=== PATIENT | female | born 2000 | race Caucasian/White ===

== ENCOUNTER 2023-02-21 10:56 | Emergency (ER) | payer OTHER ==
--- NOTE | 2023-02-21 11:30 | ERPHSYRPT ---
- History of Present Illness Source: patient, other (Mother) Exam Limitations: no limitations Patient Subjective Stated Complaint: Patient c/o vaginal bleeding that started last night. No clots. Bleeding was red yesterday and pink this am. Denies pain at this time but states she had some cramping and back pain yesterday prior to the start of the bleeding. States she took a home test yesterday that was positive. She just stopped taking her oral control yesterday. Has an appointment with Dr. Velazco on Friday. Triage Nursing Assessment: Patient ambulated back to ER without difficulties. No SOB. She is alert and oriented. GUILLORY WNL. Skin tone normal. Urine specimen obtained. Physician History: 22 yo wf w +home test yesterday and vaginal bleeding starting at 3AM. No tissue reported, and bleeding which has slowed was same as a period. She had some cramping yesterday which has resolved. Timing/Duration: today (3AM) Activites at Onset: rest Quality: cramping (Resolved) Onset Location: suprapubic Pain Radiation: none Severity of Pain-Max: mild Severity of Pain-Current: none Prior abdominal problems: none Sexual intercourse history: single partner Modifying Factors: Improves With: nothing Associated Symptoms: denies symptoms Allergies/Adverse Reactions: No Known Drug Allergies Allergy (Verified 02/21/23 11:06) Home Medications: No Reportable Medications [No Reported Medications] 02/21/23 [History] Hx Tetanus, Diphtheria Vaccination/Date Given: Yes Hx Influenza Vaccination/Date Given: Yes Hx Pneumococcal Vaccination/Date Given: No Travel Risk - International Travel Have you traveled outside of the country in past 3 weeks: No - Coronavirus Screening Are you exhibiting any of the following symptoms?: No Close contact with a COVID-19 positive Pt in past 14-21 Days: No - Vaccine Status Have you recieved a Covid-19 vaccination: Yes 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 - Review of Systems Constitutional: No Symptoms Eyes: No Symptoms Ears, Nose, & Throat: No Symptoms Respiratory: No Symptoms Cardiac: No Symptoms Abdominal/Gastrointestinal: No Symptoms, Abdominal Pain Genitourinary Symptoms: No Symptoms, Vaginal Bleeding Musculoskeletal: No Symptoms Skin: No Symptoms Neurological: No Symptoms Psychological: No Symptoms Endocrine: No Symptoms Hematologic/Lymphatic: No Symptoms Immunological/Allergic: No Symptoms - Past Medical History Pertinent Past Medical History: No - Past Surgical History Past Surgical History: Yes - Social History Smoking Status: Never smoker Exposure to second hand smoke: No Drug Use: none - Female History Hx Last Menstrual Period: 02/02/23 Hx Now: Yes (home test) Gestational Age: unknown - Nursing Vital Signs Nursing Vital Signs: Initial Vital Signs Temperature 97.7 F 02/21/23 11:07 Pulse Rate 64 02/21/23 11:07 Respiratory Rate 17 02/21/23 11:07 Blood Pressure 134/69 02/21/23 11:07 O2 Sat by Pulse Oximetry 99 02/21/23 11:07 Pain Scale Pain Intensity 0 Mildly hypertensive - Physical Exam General Appearance: no apparent distress Eye Exam: PERRL/EOMI, eyes nml inspection Ears, Nose, Throat Exam: normal ENT inspection, TMs normal, pharynx normal, moist mucous membranes Neck Exam: normal inspection, non-tender, supple, full range of motion, No meningismus, No mass, No Brudzinski, No Kernig's Respiratory Exam: normal breath sounds, lungs clear, airway intact, No respiratory distress Cardiovascular Exam: regular rate/rhythm, normal heart sounds, normal peripheral pulses, capillary refill <2 sec, No murmur Gastrointestinal/Abdomen Exam: soft, normal bowel sounds, No tenderness, No distention Back Exam: normal inspection, normal range of motion, No CVA tenderness, No vertebral tenderness Extremity Exam: normal inspection, normal range of motion Neurologic Exam: alert, oriented x 3, cooperative, 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, normal mood/affect, nml cerebellar function, nml station & gait, sensation nml, No motor deficits, No sensory deficit Skin Exam: normal color, warm, dry, No rash Lymphatic Exam: No adenopathy SpO2 Interpretation: normal SpO2: 99 O2 Delivery: Room Air - Course Nursing assessment & vital signs reviewed: Yes - Radiology Ultrasound Exam OB Ultrasound: discussed w/radiologist (Thickened endometirl stripe/Small L ovarian mass-hemorrhagic cyst vs tubo-ovarian abscess vs endometrioma) Ordered Tests: Active Orders 24 hr Category Date Time Status OB <14 WKS 1ST GESTATION [US] Stat Exams 02/21/23 12:00 Completed CBC W DIFF Stat Lab 02/21/23 11:35 Completed HCG QUALITATIVE, SERUM Stat Lab 02/21/23 11:35 Completed HCG, Quantitative (Inhouse) Stat Lab 02/21/23 12:01 Completed Lab/Rad Data: Laboratory Result Diagrams 02/21/23 11:35 Laboratory Results 02/21/23 02/21/23 02/21/23 Range/Units 12:12 12:01 11:35 WBC (4.0-10.5) x10^3/uL RBC (4.1-5.4) x10^6/uL Hgb (12.0-16.0) g/dL Hct (35-47) % MCV (78-100) fL MCH (26-32) pg MCHC (32-36) g/dL RDW (11.5-14.0) % Plt Count (150-450) x10^3/uL MPV (7.5-11.0) fL Gran % (36.0-66.0) % Immature Gran % (Auto) (0.00-0.4) % Nucleat RBC Rel Count (0.00-0.1) % Eos # (Auto) (0-0.5) x10^3/uL Immature Gran # (Auto) (0.00-0.03) x10^3u/L Absolute Lymphs (auto) (1.0-4.6) x10^3/uL Absolute Monos (auto) (0.0-1.3) x10^3/uL Absolute Nucleated RBC (0.00-0.01) x10^3u/L Lymphocytes % (24.0-44.0) % Monocytes % (0.0-12.0) % Eosinophils % (0.00-5.0) % Basophils % (0.0-0.4) % Absolute Granulocytes (1.4-6.9) x10^3/uL Basophils # (0-0.4) x10^3/uL Serum HCG, Qual POSITIVE (NEGATIVE) Beta HCG, Quant 1273.0 mIU/ml Rh Factor POSITIVE 02/21/23 Range/Units 11:35 WBC 6.4 (4.0-10.5) x10^3/uL RBC 3.76 L (4.1-5.4) x10^6/uL Hgb 10.8 L (12.0-16.0) g/dL Hct 34.6 L (35-47) % MCV 92.0 (78-100) fL MCH 28.7 (26-32) pg MCHC 31.2 L (32-36) g/dL RDW 14.6 H (11.5-14.0) % Plt Count 282 (150-450) x10^3/uL MPV 8.8 (7.5-11.0) fL Gran % 57.3 (36.0-66.0) % Immature Gran % (Auto) 0.3 (0.00-0.4) % Nucleat RBC Rel Count 0.0 (0.00-0.1) % Eos # (Auto) 0.10 (0-0.5) x10^3/uL Immature Gran # (Auto) 0.02 (0.00-0.03) x10^3u/L Absolute Lymphs (auto) 2.21 (1.0-4.6) x10^3/uL Absolute Monos (auto) 0.35 (0.0-1.3) x10^3/uL Absolute Nucleated RBC 0.00 (0.00-0.01) x10^3u/L Lymphocytes % 34.8 (24.0-44.0) % Monocytes % 5.5 (0.0-12.0) % Eosinophils % 1.6 (0.00-5.0) % Basophils % 0.5 (0.0-0.4) % Absolute Granulocytes 3.64 (1.4-6.9) x10^3/uL Basophils # 0.03 (0-0.4) x10^3/uL Serum HCG, Qual (NEGATIVE) Beta HCG, Quant mIU/ml Rh Factor - Progress Progress: improved Progress Note: 02/21/23 14:44 Nursing note and vital signs reviewed No food or housing insecurities noted All labs and US report reviewed and shared w pt Pt wo pain in ER Appointment obtained w Dr. Velazco on 02/24/23 at 15:00 US wo IUP and small mass on L ovary most likely complex hemorrhagic cyst vs tubo-ovarian abscess vs endometrioma/Pt to f/u w Dr. Velazco on 02/24/23 at 15:00. Doubt ectopic at this time but will need HCG followed and repeat US. Spoke w Dr. Velazco who agreed w office f/u. Discussed with : [place] Counseled pt/family regarding: lab results, diagnosis, need for follow-up, rad results Medical Desision Making - Independent Historian Additional History obtained from: Mother - Discussion of managment Care discussed with:: specialist Reviewed:: Test results, Need for additional workup Agreed on:: Treatment plan, need for follow-up Will see patient: In office - Diagnostic Testing Diagnostic test were ordered, analyzed, and reviewed by me: Yes Radiological Interpretation: Reviewed by me, Discussed w/ radiologist - Risk of complications Low Risk: Low risk of morbidity from additional dx testing or treatment - Departure Departure Disposition: Home Clinical Impression: First trimester bleeding Condition: Stable Critical Care Time: No Referrals: FLORENTINO VEGA [Primary Care Provider] - Follow up/PCP as directed Instructions: Threatened Miscarriage (DC) Additional Instructions: Follow up with Dr. Velazco on Friday Return to ER for increasing pain or bleeding
[2023-02-21 11:38] LABS: Absolute Neutrophil Ct (ANC) 3.64 x10^3/uL (1.4-6.9); BASOPHIL % 0.5 % (0.0-0.4); Basophil (Absolute #) 0.03 x10^3/uL (0-0.4); Eosinophil % 1.6 % (0.00-5.0); Hematocrit 34.6 % (35-47); Hemoglobin 10.8 g/dL (12.0-16.0); IMMATURE GRAN # 0.02 x10^3u/L (0.00-0.03); IMMATURE GRAN % 0.3 % (0.00-0.4); Lymphocyte (Absolute #) 2.21 x10^3/uL (1.0-4.6); Lymphocytes % 34.8 % (24.0-44.0); Mean Corpuscular Hemoglobin 28.7 pg (26-32); Mean Corpuscular Hgb Concent. 31.2 g/dL (32-36); Mean Platelet Volume 8.8 fL (7.5-11.0); Monocyte (Absolute #) 0.35 x10^3/uL (0.0-1.3); Monocytes % 5.5 % (0.0-12.0); Neutrophil % 57.3 % (36.0-66.0); Platelet Count 282 x10^3/uL (150-450); Red Blood Count 3.76 x10^6/uL (4.1-5.4); Red Cell Distribution Width 14.6 % (11.5-14.0); White Blood Count 6.4 x10^3/uL (4.0-10.5)
[2023-02-21 11:53] LABS: HCG SERUM TEST POSITIVE (NEGATIVE)
--- NOTE | 2023-02-21 13:25 | XRAY ---
Indication: Bleeding. Positive test. Two-dimensional transvaginal early OB ultrasound performed. Comparison: None Uterus retroflexed measuring 5.9 x 2.9 x 5.1 cm. No focal solid/cystic uterine mass. Thickened somewhat endometrial stripe up to 2.2 cm with subcentimeter fluid collection. No obvious intrauterine gestational sac, pole, or yolk sac. Right ovary measures 2.4 x 1.8 x 2.6 cm and the left measures 2.6 x 1.8 x 2.3 cm with normal perfusion and follicular cysts. Left ovary demonstrates a 2.9 x 1.5 x 1.7 cm echogenic mass with petechial peripheral color flow, possible complex hemorrhagic cyst versus tubo-ovarian abscess versus endometrioma. Although no pole/heart tones seen with this adnexal mass, cannot completely exclude ectopic. Small free fluid present. Impression: 1. Retroflexed uterus with thickened endometrial stripe but no obvious intrauterine / heart tones. 2. Small left ovary echogenic mass with petechial color flow as detailed either complex hemorrhagic cyst versus tubo-ovarian abscess versus endometrioma. Cannot completely exclude ectopic given positive test.
[2023-02-21 14:11] VITALS: BP 130/71; PULSE 68
[2023-02-21 14:50] VITALS: O2SAT 99
== END 2023-02-21 14:12 | disposition home or self-care (01) ==
LOC: ED 10:56
DX: O20.9 Hemorrhage in early pregnancy, unspecified (principal)
CPT/HCPCS: 36415; 76801; 84702; 84703; 85025; 86901; 99283